=== PATIENT | male | born 1960 | race African-American/Black ===

== ENCOUNTER 2017-12-06 22:06 | Emergency (ER) | payer OTHER ==
[~2017-12-06] VITALS: Ht 170.2 cm; Wt 86.1 kg
[~2017-12-06 22:06] MED LIST: AMBIEN10 MG PO; BLOOD PRESSURE MED; DESYREL 150 MG150 MG PO; HYDROCHLOROTHIA25 MG PO; METOPROLOL SUCC25 MG PO; METOPROLOL SUCC50 MG PO; MOTRIN400 MG PO; MOTRIN800 MG PO; PEPCID20 MG PO; PREDNISONE50 MG PO; TRAMADOL HCL50 MG PO
[2017-12-06] MEDS ORDERED: FLONASE16 G1 BOTH NARES (23:50)
[2017-12-06] MEDS ORDERED: PREDNISONE20 MG PO (23:50)
[2017-12-07] MEDS ORDERED: VENTOLIN HFA18 GM IH (00:07)
[2017-12-07 00:13] VITALS: BP 163/91
== END 2017-12-07 00:16 | disposition home or self-care (01) ==
LOC: EME 22:06
DX: J32.9 Chronic sinusitis, unspecified (principal); R91.8 Other nonspecific abnormal finding of lung field; J30.9 Allergic rhinitis, unspecified; J20.9 Acute bronchitis, unspecified; I10 Essential (primary) hypertension; Z71.6 Tobacco abuse counseling; F17.200 Nicotine dependence, unspecified, uncomplicated
CPT/HCPCS: 71046; 94640; 99281; 99284; J7512